=== PATIENT | male | born 1955 | race Caucasian/White ===

== ENCOUNTER 2018-09-18 17:05 | Inpatient (IN) | payer MEDICARE ==
[2018-09-18] MEDS ORDERED: NORMAL SALINE 1000 ML 1,000 ML IV ONE (17:21)
[2018-09-18 17:48] LABS: ABSOLUTE LYMPHOCYTES (AUTO) 0.8 10^3/uL (0.5-4.7); ABSOLUTE MONOCYTES (AUTO) 0.7 10^3/uL (0.1-1.4); ABSOLUTE NEUT (AUTO) 6.4 10^3/uL (1.7-8.2); BASOPHILS % (AUTO) 0.3 % (0-2); EOSINOPHILS % (AUTO) 0.1 % (0-6); HEMATOCRIT 16.7 % (37.9-51.0); LYMPHOCYTES % (AUTO) 9.7 % (13-45); MEAN CORPUSCULAR HEMOGLOBIN 23.2 pg (27.0-33.4); MEAN CORPUSCULAR HGB CONC 31.8 g/dL (32.0-36.0); MEAN CORPUSCULAR VOLUME 73 fl (80-97); MONOCYTES % (AUTO) 8.7 % (3-13); PLATELET COUNT 320 10^3/uL (150-450); RED BLOOD COUNT 2.28 10^6/uL (4.35-5.55); RED CELL DISTRIBUTION WIDTH 20.9 % (11.5-14.0); SEGMENTED NEUTROPHILS % (AUTO) 81.2 % (42-78); TOTAL CELLS COUNTED % (AUTO) 100 %; WHITE BLOOD COUNT 7.8 10^3/uL (4.0-10.5)
[2018-09-18 17:49] LABS: VENOUS BLOOD BASE EXCESS -2.4 mmol/L; VENOUS BLOOD HCO3 23.3 mmol/L (20-32); VENOUS BLOOD PCO2 45.8 mmHg (35-63); VENOUS BLOOD PH 7.33 (7.30-7.42)
[2018-09-18 17:51] LABS: HEMOGLOBIN 5.3 g/dL (13.5-17.0)
[2018-09-18] MEDS ORDERED: NORMAL SALINE 250 ML IV PRN ×2 (17:57→20:48)
[2018-09-18] MEDS ORDERED: PANTOPRAZOLE SODIUM 40 MG VIAL IV ONE (18:11)
[2018-09-18] MEDS ORDERED: PANTOPRAZOLE SODIUM 40 MG VIAL IV PRN (18:11)
[2018-09-18 18:13] LABS: ALANINE AMINOTRANSFERASE 17 U/L (21-72); ALBUMIN 2.5 g/dL (3.5-5.0); ALKALINE PHOSPHATASE 35 U/L (38-126); ANION GAP 9 (5-19); ASPARTATE AMINO TRANSFERASE 20 U/L (17-59); BILIRUBIN,DIRECT 0.1 mg/dL (0.0-0.4); BILIRUBIN,TOTAL 0.1 mg/dL (0.2-1.3); BLOOD UREA NITROGEN 35 mg/dL (7-20); CALCIUM 7.6 mg/dL (8.4-10.2); CARBON DIOXIDE 24 mmol/L (22-30); CHLORIDE 105 mmol/L (98-107); GLUCOSE 254 mg/dL (75-110); POTASSIUM 3.5 mmol/L (3.6-5.0); TOTAL PROTEIN 4.5 g/dL (6.3-8.2)
--- NOTE | 2018-09-18 18:15 | ER Document Report ---
ED General - General Stated Complaint: POSSIBLE GI BLEED Time Seen by Provider: 09/18/18 17:20 Notes: Patient is a 63-year-old male with history of peptic ulcer disease that presents to the emergency department for chief complaint of epigastric abdominal pain, weakness and fatigue and melena. Patient states that he has been having a hard time sleeping, has been taken Motrin PM, which she states is not supposed to take because he has had bleeding ulcers before, and this morning he started feeling rather weak, had a bowel movement with a large amount of black stool, which she has had in the past with his gastric ulcers. He states he feels lightheaded, did have a syncopal episode earlier in the day. At this time he feels generally weak, and has abdominal pain that he rates as a 7 out of 10 describes as a constant aching occasionally sharp sensation in his epigastric and left upper quadrant of his abdomen. He denies any chest pain, shortness of breath, difficulty breathing, fevers, chills, night sweats, dysuria or hematuria. Past Medical History: Peptic ulcer disease, hypertension, history of thyroid cancer Past Surgical History: Thyroidectomy, hernia repair Social History: Former smoker, denies alcohol or illicit drug use. Family History: Reviewed and noncontributory for presenting illness Allergies: Reviewed, see documented allergy list. REVIEW OF SYSTEMS: Other than noted above, the 12 point review of systems was reviewed with the patient and were negative, all pertinent findings are included in the HPI. PHYSICAL EXAMINATION: Vital signs reviewed, nursing noted reviewed. GENERAL: Well-appearing, well-nourished and in no acute distress. HEAD: Atraumatic, normocephalic. EYES: Eyes appear normal, extraocular movements intact, sclera anicteric, pale conjunctiva ENT: nares patent, oropharynx clear without exudates. Moist mucous membranes. NECK: Normal range of motion, supple without lymphadenopathy LUNGS: Breath sounds clear to auscultation bilaterally and equal. No wheezes rales or rhonchi. HEART: Heart rate borderline tachycardic, regular rhythm, no audible murmur ABDOMEN: Soft, epigastric and left upper quadrant tenderness to palpation, normoactive bowel sounds. No rebound, guarding, or rigidity. No masses appre ciated. EXTREMITIES: Nontender, good range of motion, no pitting or edema. NEUROLOGICAL: No focal neurological deficits. Moves all extremities spontaneously Motor and sensory grossly intact on exam. PSYCH: Normal mood, normal affect. SKIN: Warm, Dry, normal turgor, TRAVEL OUTSIDE OF THE [place] IN LAST 30 DAYS: No - Related Data Allergies/Adverse Reactions: No Known Allergies Allergy (Verified 10/26/15 19:30) Past Medical History - Social History Smoking Status: Former Smoker Family History: Reviewed & Not Pertinent Physical Exam - Vital signs Vitals: Temp Pulse Resp BP Pulse Ox 97.5 F 94 20 150/78 H 100 09/18/18 19:50 09/18/18 19:50 09/18/18 19:50 09/18/18 19:50 09/18/18 19:50 Course - Re-evaluation Re-evalutation: Patient seen and examined vital signs reviewed. Laboratory data and imaging were ordered as appropriate for the patient's presenting symptoms and complaint, with consideration of any critical or life threatening conditions that may be associated with their obtained history and exam as noted above. Patient was treated with IV fluids, IV Protonix bolus and infusion, and 2 units of packed red blood cells were ordered. Results were reviewed when available and demonstrated severe anemia of hemoglobin of 5.3, normal platelet count, INR was 1.3, his BUN was disproportionately higher than his creatinine, which is consistent with upper GI bleed, patient's had peptic ulcer disease in the past The patient was re-evaluated and was hemodynamically stable, still having some pain, he was given IV Dilaudid for his pain. Blood pressure remained stable. Evaluation was most consistent with acute GI hemorrhage, with acute blood loss anemia, I did discuss the case with Dr. You with general surgery, who is aware the patient if he needed to do an endoscopy, but at this time he is stable. Results were discussed with the patient at this point after careful consideration I feel that that patient should be admitted to the hospital. This was discussed with the patient that it is in the best interest for their care to be admitted for further evaluation and management. Patient agreed with this plan of care. A call was placed to the admitting physician, Dr. Browning who graciously accepted the patient onto their service. *Note is created using voice recognition software and may contain spelling, syntax or grammatical errors. Laboratory 09/18/18 09/18/18 09/18/18 17:20 17:21 17:25 WBC 7.8 RBC 2.28 L Hgb 5.3 L Hct 16.7 L MCV 73 L MCH 23.2 L MCHC 31.8 L RDW 20.9 H Plt Count 320 Seg Neutrophils % 81.2 H Lymphocytes % 9.7 L Monocytes % 8.7 Eosinophils % 0.1 Basophils % 0.3 Absolute Neutrophils 6.4 Absolute Lymphocytes 0.8 Absolute Monocytes 0.7 Absolute Eosinophils 0.0 Absolute Basophils 0.0 PT INR VBG pH VBG pCO2 VBG HCO3 VBG Base Excess Sodium Potassium Chloride Carbon Dioxide Anion Gap BUN Creatinine Est GFR ( Amer) Est GFR (Non-Af Amer) Glucose POC Glucose 264 H Lactic Acid 5.2 H Calcium Total Bilirubin Direct Bilirubin Neonat Total Bilirubin Neonat Direct Bilirubin Neonat Indirect Bili AST ALT Alkaline Phosphatase Troponin I Total Protein Albumin Blood Type Blood Type Confirm Antibody Screen Crossmatch 09/18/18 09/18/18 09/18/18 17:25 17:25 17:25 WBC RBC Hgb Hct MCV MCH MCHC RDW Plt Count Seg Neutrophils % Lymphocytes % Monocytes % Eosinophils % Basophils % Absolute Neutrophils Absolute Lymphocytes Absolute Monocytes Absolute Eosinophils Absolute Basophils PT 17.0 H INR 1.37 VBG pH VBG pCO2 VBG HCO3 VBG Base Excess Sodium 137.7 Potassium 3.5 L Chloride 105 Carbon Dioxide 24 Anion Gap 9 BUN 35 H Creatinine 0.82 Est GFR ( Amer) > 60 Est GFR (Non-Af Amer) > 60 Glucose 254 H POC Glucose Lactic Acid Calcium 7.6 L Total Bilirubin 0.1 L Direct Bilirubin 0.1 Neonat Total Bilirubin Not Reportable Neonat Direct Bilirubin Not Reportable Neonat Indirect Bili Not Reportable AST 20 ALT 17 L Alkaline Phosphatase 35 L Troponin I 0.061 Total Protein 4.5 L Albumin 2.5 L Blood Type Blood Type Confirm Antibody Screen Crossmatch 09/18/18 09/18/18 09/18/18 17:25 17:25 19:15 WBC RBC Hgb Hct MCV MCH MCHC RDW Plt Count Seg Neutrophils % Lymphocytes % Monocytes % Eosinophils % Basophils % Absolute Neutrophils Absolute Lymphocytes Absolute Monocytes Absolute Eosinophils Absolute Basophils PT INR VBG pH 7.33 VBG pCO2 45.8 VBG HCO3 23.3 VBG Base Excess -2.4 Sodium Potassium Chloride Carbon Dioxide Anion Gap BUN Creatinine Est GFR ( Amer) Est GFR (Non-Af Amer) Glucose POC Glucose Lactic Acid Calcium Total Bilirubin Direct Bilirubin Neonat Total Bilirubin Neonat Direct Bilirubin Neonat Indirect Bili AST ALT Alkaline Phosphatase Troponin I Total Protein Albumin Blood Type A POSITIVE Blood Type Confirm A POSITIVE Antibody Screen NEGATIVE Crossmatch See Detail Chest X-Ray 09/18/18 18:12 IMPRESSION: NO ACUTE RADIOGRAPHIC FINDING IN THE CHEST. - Vital Signs Vital signs: Temp Pulse Resp BP Pulse Ox 98.0 F 95 20 121/64 100 09/18/18 20:29 09/18/18 20:29 09/18/18 20:29 09/18/18 20:29 09/18/18 20:29 - Laboratory Result Diagrams: 09/18/18 17:25 09/18/18 17:25 Laboratory results interpreted by me: 09/18/18 09/18/18 09/18/18 17:20 17:21 17:25 RBC 2.28 L Hgb 5.3 L Hct 16.7 L MCV 73 L MCH 23.2 L MCHC 31.8 L RDW 20.9 H Seg Neutrophils % 81.2 H Lymphocytes % 9.7 L PT Potassium BUN Glucose POC Glucose 264 H Lactic Acid 5.2 H Calcium Total Bilirubin ALT Alkaline Phosphatase Total Protein Albumin Crossmatch 09/18/18 09/18/18 09/18/18 17:25 17:25 17:25 RBC Hgb Hct MCV MCH MCHC RDW Seg Neutrophils % Lymphocytes % PT 17.0 H Potassium 3.5 L BUN 35 H Glucose 254 H POC Glucose Lactic Acid Calcium 7.6 L Total Bilirubin 0.1 L ALT 17 L Alkaline Phosphatase 35 L Total Protein 4.5 L Albumin 2.5 L Crossmatch See Detail - EKG Interpretation by Me Additional EKG results interpreted by me: EKG demonstrates sinus rhythm with a ventricular rate of 88 bpm, normal axis, QTC 475 ms, there is ST depression noted in nearly all leads. No prior for comparison at this time. Critical Care Note - Critical Care Note Total time excluding time spent on procedures (mins): 36 Comments: Critical care time 36 minutes exclusive from separate billable procedures for a patient requiring complex medical decision making, and high potential for clinical deterioration. In a patient with acute blood loss anemia and acute GI hemorrhage, requiring blood transfusion and admission to the hospital. Time spent obtaining history from patient or surrogate, discussions with consultants, development of treatment plan with patient or surrogate, evaluation of patient's response to treatment, examination of patient, ordering and performing treatments and interventions, ordering and review of laboratory studies, re- evaluation of patient's condition, ordering and review of radiographic studies and review of old charts Discharge - Discharge Clinical Impression: Acute GI hemorrhage, Acute blood loss anemia Condition: Stable Disposition: ADMITTED INPATIENT Admitting Provider: Nallely (Hospitalist) Unit Admitted: [facility]
[2018-09-18] MEDS ORDERED: FENTANYL CITRATE INJ/PF 100 MCG/2 ML AMPUL IV ONE (18:20)
[2018-09-18] MEDS ORDERED: ONDANSETRON HCL INJ/PF 4 MG/2 ML SDV IV ONE (18:20)
[2018-09-18 18:21] LABS: INTERNATIONAL RATION (INR) 1.37
--- NOTE | 2018-09-18 19:02 | RADIOLOGY REPORT (SQ) ---
EXAM DESCRIPTION: CHEST SINGLE VIEW COMPLETED DATE/TIME: 09/18/2018 6:50 pm REASON FOR STUDY: epigastric pain COMPARISON: None. EXAM PARAMETERS: NUMBER OF VIEWS: One view. TECHNIQUE: Single frontal radiographic view of the chest acquired. RADIATION DOSE: NA LIMITATIONS: None. FINDINGS: LUNGS AND PLEURA: No opacities, masses or pneumothorax. No pleural effusion. MEDIASTINUM AND HILAR STRUCTURES: No masses. Contour normal. HEART AND VASCULAR STRUCTURES: Heart normal in size. Normal vasculature. BONES: No acute findings. HARDWARE: None in the chest. OTHER: No other significant finding. IMPRESSION: NO ACUTE RADIOGRAPHIC FINDING IN THE CHEST. TECHNICAL DOCUMENTATION: JOB ID: [id number] [employer]- All Rights Reserved Reading location - IP/workstation name: [email or web address]
[2018-09-18] MEDS ORDERED: HYDROMORPHONE HCL INJ/PF 2 MG/ML AMPULE IV ONE (20:39)
[2018-09-18] MEDS ORDERED: HYDRALAZINE HCL INJ/PF 20 MG/1 ML SDV IV PRN (20:46)
[2018-09-18] MEDS ORDERED: MORPHINE SULFATE 10 MG/ML INJ IV PRN ×3 (20:46→21:42)
[2018-09-18] MEDS ORDERED: ACETAMINOPHEN 650 MG SUPP.RECT PR PRN (20:46)
[2018-09-18] MEDS ORDERED: METOPROLOL TARTRATE PF/INJ 5 MG/5 ML SDV IV PRN (20:46)
[2018-09-18] MEDS ORDERED: ONDANSETRON HCL INJ/PF 4 MG/2 ML SDV ONE (20:47)
[2018-09-18] MEDS ORDERED: FUROSEMIDE INJ/PF 20 MG/2 ML SDV IV PRN (20:48)
[2018-09-18] MEDS ORDERED: DIPHENHYDRAMINE HCL 50 MG/ML VIAL IV PRN (20:48)
--- NOTE | 2018-09-18 21:14 | PDOC CONSULTATION ---
Consultation Consult Date: 09/18/18 Provider Consulted: BAUDILIO CONTRERAS Consult reason:: UGI bleed History of Present Illness Admission Date/PCP: 09/18/18 21:00 BASSEM MORALES MD History of Present Illness: RADHIKA DUMONT is a 63 year old male with known duodenal ulcer has been taking Motrin based sleeping pill every night for the past 30 days. This morning c/o epigastric pains,weakness near sybcopal episode, nausea and a large melanotic stools. Went to ED and noted HB of 5.3 and melanotic stool. Past Medical History Cardiac Medical History: Reports: Hypertension Denies: Atrial Fibrillation, Coronary Artery Disease, Myocardial Infarction Pulmonary Medical History: Denies: Asthma, Chronic Obstructive Pulmonary Disease (COPD) EENT Medical History: Denies: Cataracts, Ears - Hearing aids Neurological Medical History: Denies: Hemorrhagic CVA, Ischemic CVA, Multiple Sclerosis, Seizures Endocrine Medical History: Reports: Hypothyroidism, Other - Thyroid cancer Denies: Diabetes Mellitus Type 1, Diabetes Mellitus Type 2 Renal/ Medical History: Denies: Chronic Kidney Disease, Nephrolithiasis Malignancy Medical History: Reports: Other - Thyroid cancer GI Medical History: Reports: Peptic Ulcer Disease Denies: Cirrhosis, Hepatitis Musculoskeltal Medical History: Denies: Arthritis, Gout Skin Medical History: Denies: Eczema, Psoriasis Psychiatric Medical History: Reports: Tobacco Dependency Denies: Alcohol Dependency, Substance Abuse Traumatic Medical History: Reports: None Hematology: Denies: Anemia, Bleeding Tendencies Infectious Medical History: Reports: None Past Surgical History Past Surgical History: Reports: Herniorrhaphy, Thyroidectomy Social History Smoking Status: Former Smoker Frequency of Alcohol Use: None Hx Recreational Drug Use: No Drugs: None Hx Prescription Drug Abuse: No - Advance Directive Resuscitation Status: Full Code Family History Family History: Hypertension, Malignancy. denies: CAD, DM Parental Family History Reviewed: Yes Children Family History Reviewed: No Sibling(s) Family History Reviewed.: No Medication/Allergy Allergies/Adverse Reactions: No Known Allergies Allergy (Verified 10/26/15 19:30) Review of Systems Constitutional: PRESENT: as per HPI Physical Exam Vital Signs: Temp Pulse Resp BP Pulse Ox 98.0 F 95 20 121/64 100 09/18/18 20:29 09/18/18 20:29 09/18/18 20:29 09/18/18 20:29 09/18/18 20:29 Intake & Output 09/17/18 09/18/18 09/19/18 06:59 06:59 06:59 Intake Total 1000 Balance 1000 Weight 80.2 kg General appearance: PRESENT: severe distress Head exam: PRESENT: atraumatic Eye exam: PRESENT: conjunctiva pale Mouth exam: PRESENT: dry mucosa Neck exam: PRESENT: full ROM Respiratory exam: PRESENT: clear to auscultation fito Cardiovascular exam: PRESENT: tachycardia Pulses: PRESENT: normal radial pulses Vascular exam: PRESENT: pallor GI/Abdominal exam: PRESENT: soft, tenderness - epigastic Rectal exam: PRESENT: black stool Extremities exam: PRESENT: full ROM Musculoskeletal exam: PRESENT: ambulatory Neurological exam: PRESENT: alert, oriented to person, oriented to place, oriented to time, oriented to situation Psychiatric exam: PRESENT: anxious Skin exam: PRESENT: pallor, warm Results Laboratory Results: 09/18/18 17:25 09/18/18 17:25 09/18/18 09/18/18 09/18/18 17:21 17:25 17:25 WBC 7.8 RBC 2.28 L Hgb 5.3 L Hct 16.7 L MCV 73 L MCH 23.2 L MCHC 31.8 L RDW 20.9 H Plt Count 320 Seg Neutrophils % 81.2 H Lymphocytes % 9.7 L Monocytes % 8.7 Eosinophils % 0.1 Basophils % 0.3 Absolute Neutrophils 6.4 Absolute Lymphocytes 0.8 Absolute Monocytes 0.7 Absolute Eosinophils 0.0 Absolute Basophils 0.0 VBG pH VBG pCO2 VBG HCO3 VBG Base Excess Sodium 137.7 Potassium 3.5 L Chloride 105 Carbon Dioxide 24 Anion Gap 9 BUN 35 H Creatinine 0.82 Est GFR ( Amer) > 60 Est GFR (Non-Af Amer) > 60 Glucose 254 H Lactic Acid 5.2 H Calcium 7.6 L Total Bilirubin 0.1 L AST 20 ALT 17 L Alkaline Phosphatase 35 L Total Protein 4.5 L Albumin 2.5 L Blood Type Antibody Screen 09/18/18 09/18/18 17:25 17:25 WBC RBC Hgb Hct MCV MCH MCHC RDW Plt Count Seg Neutrophils % Lymphocytes % Monocytes % Eosinophils % Basophils % Absolute Neutrophils Absolute Lymphocytes Absolute Monocytes Absolute Eosinophils Absolute Basophils VBG pH 7.33 VBG pCO2 45.8 VBG HCO3 23.3 VBG Base Excess -2.4 Sodium Potassium Chloride Carbon Dioxide Anion Gap BUN Creatinine Est GFR ( Amer) Est GFR (Non-Af Amer) Glucose Lactic Acid Calcium Total Bilirubin AST ALT Alkaline Phosphatase Total Protein Albumin Blood Type A POSITIVE Antibody Screen NEGATIVE 09/18/18 17:25 Troponin I 0.061 Impressions: Chest X-Ray 09/18/18 18:12 IMPRESSION: NO ACUTE RADIOGRAPHIC FINDING IN THE CHEST. Assessment & Plan - Diagnosis (1) Acute epigastric pain Is this a current diagnosis for this admission?: Yes (2) Acute upper gastrointestinal hemorrhage Is this a current diagnosis for this admission?: Yes (3) Anemia due to acute blood loss Is this a current diagnosis for this admission?: Yes (4) Essential hypertension Is this a current diagnosis for this admission?: Yes - Time Time Spent: 30 to 50 Minutes - Inpatient Certification Medical Necessity: Need Close Monitoring Due to Risk of Patient Decompensation, Need For IV Fluids, Need for Pain Control, Risk of Complication if Not Cared For in Hospital - Plan Summary Plan Summary: Transfuse Give 2 Units FFP after transfusing 2-3 PRBCs Continue Protonix drip Possible EGD
[2018-09-18 21:40] LABS: FREE T3 3.2 pg/mL (2.77-5.27); FREE T4 (FREE THYROXINE) 0.74 ng/dL (0.78-2.19)
[2018-09-18 21:53] LABS: THYROID STIMULATING HORMONE 1.23 uIU/mL (0.47-4.68)
--- NOTE | 2018-09-18 23:12 | EKG REPORT ---
SEVERITY:- ABNORMAL ECG - SINUS RHYTHM CONSIDER POSTERIOR INFARCT ST-T WAVE CHANGES ALSO CONSISTENT WITH ISCHEMIA : Confirmed by: Melisa Proctor 18-Sep-2018 23:11:52
[2018-09-19] MEDS: MORPHINE SULFATE 10 MG/ML INJ IV PRN ×6 (00:11→23:58)
[2018-09-19] MEDS ORDERED: CHLORPROMAZINE HCL INJ 25 MG/1 ML AMPULE IV PRN (01:47)
[2018-09-19] MEDS ORDERED: CHLORPROMAZINE HCL INJ 25 MG/1 ML AMPULE ONE (01:50)
--- NOTE | 2018-09-19 01:54 | PDOC H&P ---
History of Present Illness Admission Date/PCP: 09/18/2018 19:39 BASSME MORALES MD Patient complains of: Abdominal pain History of Present Illness: RADHIKA DUMONT is a 63 year old male who presented to the emergency room with acute abdominal pain. He admits waking this morning with the acute onset of severe, constant, achy (with intermittent sharp pains) epigastric pain without radiation. Patient's abdominal pain was accompanied by a feeling of generalized fatigue and weakness and was associated with passing a large dark black tarry stool and a syncopal episode. He denies other associated or accompanying signs and symptoms. He admits recent problems with insomnia for which she has been taking Motrin PM. He further admits a history of peptic ulcer disease with hemorrhage and relates that his current episode is very similar to his previous episode. He has not identified any other aggravating or ameliorating factors for his abdominal pain. In the emergency room he was found to be hemodynamically stable but had a hemoglobin of 5.3 and a BUN of 35. Patient was subsequently admitted to the hospital for further evaluation and treatment. Past Medical History Cardiac Medical History: Reports: Hypertension Denies: Atrial Fibrillation, Coronary Artery Disease, Myocardial Infarction Pulmonary Medical History: Denies: Asthma, Chronic Obstructive Pulmonary Disease (COPD) EENT Medical History: Denies: Cataracts, Ears - Hearing aids Neurological Medical History: Denies: Hemorrhagic CVA, Ischemic CVA, Multiple Sclerosis, Seizures Endocrine Medical History: Reports: Hypothyroidism, Other - Thyroid cancer Denies: Diabetes Mellitus Type 1, Diabetes Mellitus Type 2 Renal/ Medical History: Denies: Chronic Kidney Disease, Nephrolithiasis Malignancy Medical History: Reports: Other - Thyroid cancer GI Medical History: Reports: Peptic Ulcer Disease Denies: Cirrhosis, Hepatitis Musculoskeltal Medical History: Denies: Arthritis, Gout Skin Medical History: Denies: Eczema, Psoriasis Psychiatric Medical History: Reports: Tobacco Dependency Denies: Alcohol Dependency, Substance Abuse Traumatic Medical History: Reports: None Hematology: Denies: Anemia, Bleeding Tendencies Infectious Medical History: Reports: None Past Surgical History Past Surgical History: Reports: Herniorrhaphy, Hip Replacement, Knee Replacement, Thyroidectomy Social History Information Source: Patient Smoking Status: Former Smoker Frequency of Alcohol Use: None Hx Recreational Drug Use: No Drugs: None Hx Prescription Drug Abuse: No - Advance Directive Resuscitation Status: Full Code Surrogate healthcare decision maker:: Isi [place] Family History Family History: Hypertension, Malignancy. denies: CAD, DM Parental Family History Reviewed: Yes Children Family History Reviewed: No Sibling(s) Family History Reviewed.: Yes Medication/Allergy Home Medications: Buspirone HCl [Buspar 10 mg Tablet] 10 mg PO Q8 09/18/18 Clonidine HCl [Catapres 0.1 mg Tablet] 0.1 mg PO Q12 09/18/18 Doxepin HCl [Sinequan 10 mg Capsule] 10 mg PO QHS 09/18/18 Gabapentin [Neurontin] 600 mg PO Q8 09/18/18 Hydroxyzine Pamoate [Vistaril 25 mg Capsule] 25 mg PO Q8HP PRN 09/18/18 Levothyroxine Sodium [Levo-T] 150 mcg PO Q2D 09/18/18 Levothyroxine Sodium [Synthroid] 137 mcg PO Q2D 09/18/18 Losartan/Hydrochlorothiazide [Hyzaar 50-12.5 Tablet] 1 tab PO Q12 09/18/18 Magnesium Oxide [Mag-Ox 400 mg Tablet] 400 mg PO QHS 09/18/18 Oxycodone HCl 15 mg PO Q6HP PRN 09/18/18 Sucralfate [Carafate 1 gm Tablet] 1 gm PO MEALSHS 09/18/18 Venlafaxine HCl [Venlafaxine HCl ER] 150 mg PO Q12 09/18/18 Allergies/Adverse Reactions: No Known Allergies Allergy (Verified 10/26/15 19:30) Review of Systems Constitutional: PRESENT: as per HPI, fatigue, weakness. ABSENT: chills, fever(s) Eyes: ABSENT: visual disturbances, other - Eye pain Ears: ABSENT: hearing changes, other - Ear pain Nose, Mouth, and Throat: ABSENT: mouth pain, sore throat Cardiovascular: ABSENT: chest pain, dyspnea on exertion, edema, orthropnea, palpitations Respiratory: ABSENT: cough, dyspnea Gastrointestinal: PRESENT: as per HPI, abdominal pain, melena. ABSENT: constipation, diarrhea, nausea, vomiting Genitourinary: ABSENT: dysuria, hematuria Musculoskeletal: ABSENT: back pain, joint swelling, muscle weakness Integumentary: ABSENT: pruritus, rash Neurological: PRESENT: as per HPI, syncope, other - Insomnia. ABSENT: confusion, convulsions, focal weakness, memory loss Psychiatric: ABSENT: anxiety, depression Endocrine: ABSENT: cold intolerance, heat intolerance Hematologic/Lymphatic: ABSENT: easy bleeding, easy bruising Physical Exam General appearance: PRESENT: no acute distress, cooperative Head exam: PRESENT: atraumatic, normocephalic Eye exam: PRESENT: conjunctiva pale. ABSENT: conjunctival injection, scleral icterus Ear exam: PRESENT: normal external ear exam. ABSENT: bleeding, drainage Mouth exam: PRESENT: dry mucosa, neck supple Neck exam: PRESENT: other - Thyroid is surgically absent. ABSENT: JVD, tracheal deviation Respiratory exam: PRESENT: clear to auscultation fito, symmetrical, unlabored Cardiovascular exam: PRESENT: RRR. ABSENT: clicks, gallop, rubs Pulses: PRESENT: normal radial pulses, normal dorsalis pedis pul Vascular exam: PRESENT: normal capillary refill, pallor - Moderate pallor noted GI/Abdominal exam: PRESENT: normal bowel sounds, soft, tenderness - Mild epigastric tenderness on palpation, moderate to moderately severe tenderness to palpation in the periumbilical and suprapubic regions.. ABSENT: guarding, rebound Rectal exam: PRESENT: deferred Extremities exam: ABSENT: joint swelling, pedal edema Musculoskeletal exam: PRESENT: full ROM, normal inspection. ABSENT: tenderness Neurological exam: PRESENT: alert, oriented to person, oriented to place, oriented to time, oriented to situation, CN II-XII grossly intact. ABSENT: motor sensory deficit Psychiatric exam: PRESENT: appropriate affect, normal mood Skin exam: PRESENT: dry, intact, pallor - Moderate pallor, warm. ABSENT: jaundice, rash, urticaria Results Laboratory Results: 09/18/18 17:25 09/18/18 17:25 09/18/18 09/18/18 09/18/18 17:21 17:25 17:25 WBC 7.8 RBC 2.28 L Hgb 5.3 L Hct 16.7 L MCV 73 L MCH 23.2 L MCHC 31.8 L RDW 20.9 H Plt Count 320 Seg Neutrophils % 81.2 H Lymphocytes % 9.7 L Monocytes % 8.7 Eosinophils % 0.1 Basophils % 0.3 Absolute Neutrophils 6.4 Absolute Lymphocytes 0.8 Absolute Monocytes 0.7 Absolute Eosinophils 0.0 Absolute Basophils 0.0 VBG pH VBG pCO2 VBG HCO3 VBG Base Excess Sodium 137.7 Potassium 3.5 L Chloride 105 Carbon Dioxide 24 Anion Gap 9 BUN 35 H Creatinine 0.82 Est GFR ( Amer) > 60 Est GFR (Non-Af Amer) > 60 Glucose 254 H Lactic Acid 5.2 H Calcium 7.6 L Total Bilirubin 0.1 L AST 20 ALT 17 L Alkaline Phosphatase 35 L Total Protein 4.5 L Albumin 2.5 L Blood Type Antibody Screen 09/18/18 09/18/18 17:25 17:25 WBC RBC Hgb Hct MCV MCH MCHC RDW Plt Count Seg Neutrophils % Lymphocytes % Monocytes % Eosinophils % Basophils % Absolute Neutrophils Absolute Lymphocytes Absolute Monocytes Absolute Eosinophils Absolute Basophils VBG pH 7.33 VBG pCO2 45.8 VBG HCO3 23.3 VBG Base Excess -2.4 Sodium Potassium Chloride Carbon Dioxide Anion Gap BUN Creatinine Est GFR ( Amer) Est GFR (Non-Af Amer) Glucose Lactic Acid Calcium Total Bilirubin AST ALT Alkaline Phosphatase Total Protein Albumin Blood Type A POSITIVE Antibody Screen NEGATIVE 09/18/18 17:25 Troponin I 0.061 Impressions: Chest X-Ray 09/18/18 18:12 IMPRESSION: NO ACUTE RADIOGRAPHIC FINDING IN THE CHEST. Assessment and Plan - Diagnosis (1) Acute upper gastrointestinal hemorrhage Is this a current diagnosis for this admission?: Yes Plan: Patient will be treated with supportive and symptomatic cares. A surgical consultation will be obtained for evaluation and/or treatment of the acute upper GI hemorrhage. Every 6 hours hemoglobins and daily metabolic profiles with magnesium levels will be obtained. Anemia will be corrected with acute transfusion, initially 2 units of packed red blood cells with further replacement as required. Patient will receive IV Protonix as part of his management. Patient's epigastric pain will be treated with morphine sulfate 2 to 4 mg IV every 2 hours on a as needed basis per sliding scale. (2) Acute epigastric pain Is this a current diagnosis for this admission?: Yes Plan: Patient will receive IV Protonix as part of his management. Patient's epigastric pain will be treated with morphine sulfate 2 to 4 mg IV every 2 hours on a as needed basis per sliding scale. (3) Anemia due to acute blood loss Is this a current diagnosis for this admission?: Yes Plan: A surgical consultation will be obtained for evaluation and/or treatment of the acute upper GI hemorrhage. Every 6 hours hemoglobins and daily metabolic profiles with magnesium levels will be obtained. Anemia will be corrected with acute transfusion, initially 2 units of packed red blood cells with further replacement as required. (4) Acquired hypothyroidism Is this a current diagnosis for this admission?: Yes Plan: Thyroid profile will be obtained to evaluate the efficacy of the patient's current therapy. The patient will be continued on his current thyroid replacement hormone administered intravenously until he is able to take p.o. meds. (5) Essential hypertension Is this a current diagnosis for this admission?: Yes Plan: Patient will be continued on his current antihypertensive therapy when he is able to take oral medications again. In the interim he will be controlled with intravenous hydralazine 20 mg IV every 4 hours and or intravenous metoprolol 5 mg IV every 4 hours. - Time Time Spent with patient: 25-34 minutes Medications reviewed and adjusted accordingly: Yes Anticipated discharge: Home - Inpatient Certification Based on my medical assessment, after consideration of the patient's comorbidities, presenting symptoms, or acuity I expect that the services needed warrant INPATIENT care.: Yes I certify that my determination is in accordance with my understanding of Medicare's requirements for reasonable and necessary INPATIENT services [42 CFR 412.3e].: Yes Medical Necessity: Need Close Monitoring Due to Risk of Patient Decompensation, Need For Continuous Telemetry Monitoring, Need for Pain Control, Need for Surgery, Risk of Complication if Not Cared For in Hospital
--- NOTE | 2018-09-19 01:56 | ADVANCED CARE ---
- Diagnosis (1) Acute upper gastrointestinal hemorrhage Diagnosis Current: Yes (2) Acute epigastric pain Diagnosis Current: Yes (3) Anemia due to acute blood loss Diagnosis Current: Yes (4) Acquired hypothyroidism Diagnosis Current: Yes (5) Essential hypertension Diagnosis Current: Yes Attendance: The patient and myself. Resuscitation Status: Full Code Discussion: After brief discussion the patient is determined that he wishes to remain full code for resuscitation status throughout this hospital course. Additionally he has named Isi Gonzalez as his designated surrogate medical decision-maker. Care Planning Goals: 1. Patient will be full CODE STATUS throughout his hospital course. 2. Isi Summers is his designated surrogate medical decision maker. Document(s) Completed: The following will be entered into the patient's permanent medical record, current medical record and current orders via EMR entry: 1. Patient will be full CODE STATUS throughout his hospital course. 2. Isi Summers is his designated surrogate medical decision maker. Time Spent: 16 minutes
[2018-09-19] MEDS: ONDANSETRON HCL INJ/PF 4 MG/2 ML SDV IV PRN (01:58)
[2018-09-19] MEDS: NORMAL SALINE 1000 ML 1,000 ML IV PRN ×2 (03:10→13:00)
--- NOTE | 2018-09-19 04:29 | Progress Note ---
Provider Note Provider Note: Critical Care: Start: 01:28 09/19/2018 Care issues near syncope, tachycardia and diaphoresis. Patient was up to the bathroom and developed sudden lightheadedness with near syncope, profuse diaphoresis and tachycardia. He was helped back to the bed and felt better, but remained diaphoretic and tachycardic. Patient was evaluated and was found to have a blood pressure of 139/84. His chest was clear and his abdomen showed decreased bowel sounds with mild tenderness throughout the epigastrium and moderate to moderately severe tenderness in the periumbilical and suprapubic regions. He showed diaphoresis and pallor on visual inspection. Patient was due to receive additional blood therefore the transfusions were continued and the choice to continue to observe him on the IMCU was made. Patient was subsequently given additional IV fluids and his second unit of blood. By the time his second unit of blood had been administered he was found to be markedly hypotensive with a systolic blood pressure of 48 persistent tachycardia in the 110's. At the time of my second evaluation the patient was found to be awake alert and asking for something for pain though his monitor showed a systolic blood pressure of 48 and a heart rate of 118. Certainly there is a technical/mechanical problem with the measurement of the blood pressure I am having the patient transferred to the ICU for further evaluation and treatment in the anticipation that he may need a central line placement and may require high-volume IV fluids and/or massive blood transfusion and/or immediate surgery. Orders were placed and the patient has been moved to the ICU. On reevaluation the ICU the patient is found to have a blood pressure 123/80, heart rate remains 113. Be given more fluids and consideration for central line should be given when the patient is seen by the surgicalist again later today. End: 04:27 09/19/2018 Total face time critical care: 29 minutes
[2018-09-19] MEDS ORDERED: RINGERS SOLUTION,LACTATED 1,000 ML IV PRN (04:37)
[2018-09-19] MEDS: METOCLOPRAMIDE HCL INJ/PF 10 MG/2 ML SDV IV SCH ×4 (05:02→23:13)
[2018-09-19 05:36] LABS: HEMATOCRIT 17.1 % (37.9-51.0); MEAN CORPUSCULAR HEMOGLOBIN 26.2 pg (27.0-33.4); MEAN CORPUSCULAR HGB CONC 32.3 g/dL (32.0-36.0); PLATELET COUNT 188 10^3/uL (150-450); RED BLOOD COUNT 2.11 10^6/uL (4.35-5.55); RED CELL DISTRIBUTION WIDTH 20.4 % (11.5-14.0); WHITE BLOOD COUNT 7.3 10^3/uL (4.0-10.5)
[2018-09-19 05:37] LABS: MEAN CORPUSCULAR VOLUME 81 fl (80-97)
[2018-09-19 05:39] LABS: HEMOGLOBIN 5.5 g/dL (13.5-17.0)
[2018-09-19] MEDS ORDERED: DEXTROSE 40% GEL 15 GM TUBE PO PRN ×2 (06:06)
[2018-09-19] MEDS ORDERED: DEXTROSE 50%-WATER 25 GM/50 ML DISP.SYRIN IV PRN ×2 (06:06)
[2018-09-19] MEDS ORDERED: GLUCAGON,HUMAN RECOMB 1 MG INJ SUBCUT PRN (06:06)
[2018-09-19 06:35] LABS: INTERNATIONAL RATION (INR) 1.48
[2018-09-19 06:47] LABS: ANION GAP 10 (5-19); BLOOD UREA NITROGEN 41 mg/dL (7-20); CARBON DIOXIDE 19 mmol/L (22-30); CHLORIDE 109 mmol/L (98-107); GLUCOSE 140 mg/dL (75-110); POTASSIUM 3.9 mmol/L (3.6-5.0)
[2018-09-19 06:50] LABS: APPEARANCE,URINE CLEAR; BILIRUBIN,URINE NEGATIVE (NEGATIVE); COLOR,URINE YELLOW; GLUCOSE, URINE 50 mg/dL (NEGATIVE); KETONES,URINE NEGATIVE (NEGATIVE); LEUKOCYTE ESTERASE,URINE NEGATIVE (NEGATIVE); NITRITE,URINE NEGATIVE (NEGATIVE); PROTEIN,URINE NEGATIVE (NEGATIVE); URINE SPECIFIC GRAVITY 1.016; UROBILINOGEN,URINE NEGATIVE mg/dL (<2.0)
[2018-09-19 06:53] LABS: CALCIUM 6.8 mg/dL (8.4-10.2)
[2018-09-19] MEDS: NORMAL SALINE 100 ML with PANTOPRAZOLE SODIUM 80 MG IV PRN ×4 (09:00→20:30)
--- NOTE | 2018-09-19 09:06 | PDOC PROGRESS REPORT ---
Subjective Progress Note for:: 09/19/18 Subjective:: 63 y/o M with a h/o NSAID overuse. He was found to have a hemoglobin of 5. He was given 2 units, and his hemoglobin remains at 5. The patient reports melanotic stool. He denies nausea, vomiting, hematemesis. He reports epigastric abdominal pain. He reports a history of peptic ulcer disease in the past. He feels weak, tired, and orthostatic. Reason For Visit: UPPDER GI BLEED Physical Exam Vital Signs: Temp Pulse Resp BP Pulse Ox 99.1 F 104 H 18 111/67 100 09/19/18 08:00 09/19/18 08:00 09/19/18 08:00 09/19/18 08:00 09/19/18 08:00 Intake & Output 09/18/18 09/19/18 09/20/18 06:59 06:59 06:59 Intake Total 1548 Output Total 0 1000 Balance 1548 -1000 Weight 78.3 kg General appearance: PRESENT: cooperative Head exam: PRESENT: atraumatic, normocephalic Eye exam: PRESENT: EOMI, PERRLA. ABSENT: scleral icterus Mouth exam: PRESENT: moist, neck supple Neck exam: ABSENT: meningismus, tenderness, thyromegaly, tracheal deviation Cardiovascular exam: PRESENT: tachycardia Pulses: PRESENT: normal radial pulses Vascular exam: PRESENT: pallor. ABSENT: normal capillary refill GI/Abdominal exam: PRESENT: soft. ABSENT: distended, firm, tenderness Rectal exam: PRESENT: deferred Extremities exam: ABSENT: clubbing Musculoskeletal exam: ABSENT: deformity Neurological exam: PRESENT: awake - Awakens to voice., oriented to person, oriented to place, oriented to time, oriented to situation Psychiatric exam: ABSENT: agitated, anxious, depressed Focused psych exam: ABSENT: delusional Skin exam: ABSENT: erythema, jaundice Results Laboratory Results: 09/19/18 05:27 09/19/18 06:20 09/18/18 09/18/18 09/18/18 17:21 17:25 17:25 WBC 7.8 RBC 2.28 L Hgb 5.3 L Hct 16.7 L MCV 73 L MCH 23.2 L MCHC 31.8 L RDW 20.9 H Plt Count 320 Seg Neutrophils % 81.2 H Lymphocytes % 9.7 L Monocytes % 8.7 Eosinophils % 0.1 Basophils % 0.3 Absolute Neutrophils 6.4 Absolute Lymphocytes 0.8 Absolute Monocytes 0.7 Absolute Eosinophils 0.0 Absolute Basophils 0.0 VBG pH VBG pCO2 VBG HCO3 VBG Base Excess Sodium 137.7 Potassium 3.5 L Chloride 105 Carbon Dioxide 24 Anion Gap 9 BUN 35 H Creatinine 0.82 Est GFR ( Amer) > 60 Est GFR (Non-Af Amer) > 60 Glucose 254 H Lactic Acid 5.2 H Calcium 7.6 L Magnesium Total Bilirubin 0.1 L AST 20 ALT 17 L Alkaline Phosphatase 35 L Total Protein 4.5 L Albumin 2.5 L TSH Free T4 Free T3 pg/mL Urine Color Urine Appearance Urine pH Ur Specific [place] Urine Protein Urine Glucose (UA) Urine Ketones Urine Blood Urine Nitrite Ur Leukocyte Esterase Urine WBC (Auto) Urine RBC (Auto) Blood Type Antibody Screen 09/18/18 09/18/18 09/18/18 17:25 17:25 17:25 WBC RBC Hgb Hct MCV MCH MCHC RDW Plt Count Seg Neutrophils % Lymphocytes % Monocytes % Eosinophils % Basophils % Absolute Neutrophils Absolute Lymphocytes Absolute Monocytes Absolute Eosinophils Absolute Basophils VBG pH 7.33 VBG pCO2 45.8 VBG HCO3 23.3 VBG Base Excess -2.4 Sodium Potassium Chloride Carbon Dioxide Anion Gap BUN Creatinine Est GFR ( Amer) Est GFR (Non-Af Amer) Glucose Lactic Acid Calcium Magnesium Total Bilirubin AST ALT Alkaline Phosphatase Total Protein Albumin TSH 1.23 Free T4 0.74 L Free T3 pg/mL 3.20 Urine Color Urine Appearance Urine pH Ur Specific [place] Urine Protein Urine Glucose (UA) Urine Ketones Urine Blood Urine Nitrite Ur Leukocyte Esterase Urine WBC (Auto) Urine RBC (Auto) Blood Type A POSITIVE Antibody Screen NEGATIVE 09/19/18 09/19/18 09/19/18 00:31 05:27 06:20 WBC 7.3 RBC 2.11 L Hgb 5.5 L Hct 17.1 L MCV 81 D MCH 26.2 L MCHC 32.3 RDW 20.4 H Plt Count 188 Seg Neutrophils % Lymphocytes % Monocytes % Eosinophils % Basophils % Absolute Neutrophils Absolute Lymphocytes Absolute Monocytes Absolute Eosinophils Absolute Basophils VBG pH VBG pCO2 VBG HCO3 VBG Base Excess Sodium 137.8 Potassium 3.9 Chloride 109 H Carbon Dioxide 19 L Anion Gap 10 BUN 41 H Creatinine 1.12 Est GFR ( Amer) > 60 Est GFR (Non-Af Amer) > 60 Glucose 140 H Lactic Acid 3.0 H Calcium 6.8 L* Magnesium 1.8 Total Bilirubin AST ALT Alkaline Phosphatase Total Protein Albumin TSH Free T4 Free T3 pg/mL Urine Color Urine Appearance Urine pH Ur Specific [place] Urine Protein Urine Glucose (UA) Urine Ketones Urine Blood Urine Nitrite Ur Leukocyte Esterase Urine WBC (Auto) Urine RBC (Auto) Blood Type Antibody Screen 09/19/18 09/19/18 06:20 06:36 WBC RBC Hgb Hct MCV MCH MCHC RDW Plt Count Seg Neutrophils % Lymphocytes % Monocytes % Eosinophils % Basophils % Absolute Neutrophils Absolute Lymphocytes Absolute Monocytes Absolute Eosinophils Absolute Basophils VBG pH VBG pCO2 VBG HCO3 VBG Base Excess Sodium Potassium Chloride Carbon Dioxide Anion Gap BUN Creatinine Est GFR ( Amer) Est GFR (Non-Af Amer) Glucose Lactic Acid 6.8 H Calcium Magnesium Total Bilirubin AST ALT Alkaline Phosphatase Total Protein Albumin TSH Free T4 Free T3 pg/mL Urine Color YELLOW Urine Appearance CLEAR Urine pH 6.0 Ur Specific [place] 1.016 Urine Protein NEGATIVE Urine Glucose (UA) 50 H Urine Ketones NEGATIVE Urine Blood NEGATIVE Urine Nitrite NEGATIVE Ur Leukocyte Esterase NEGATIVE Urine WBC (Auto) 1 Urine RBC (Auto) 0 Blood Type Antibody Screen 09/18/18 17:25 Troponin I 0.061 Impressions: Chest X-Ray 09/18/18 18:12 IMPRESSION: NO ACUTE RADIOGRAPHIC FINDING IN THE CHEST. Assessment & Plan - Diagnosis (1) GI bleeding Is this a current diagnosis for this admission?: Yes (2) Anemia due to acute blood loss Is this a current diagnosis for this admission?: Yes - Plan Summary Plan Summary: This is a 63-year-old male with GI bleeding and severe anemia. The patient is due to receive 4 units of packed red blood cells and 2 units of FFP. Plan for EGD today to evaluate gastric and duodenal mucosa. Intervention will be performed, if indicated. I discussed this with the patient. He is in agreement with treatment plan. Risks/benefits discussed, informed consent obtained, and all questions answered.
[2018-09-19] MEDS ORDERED: PANTOPRAZOLE SODIUM 40 MG VIAL IV SCH (10:00)
[2018-09-19] MEDS ORDERED: OCTREOTIDE ACETATE INJ/PF 100 MCG/1 ML SDV IV ONE (12:00)
[2018-09-19] MEDS ORDERED: PROPOFOL INJ 200 MG/20 ML VIAL IV ONE (12:08)
[2018-09-19] MEDS ORDERED: EPINEPHRINE INJ 1 MG/10 ML DISP.SYRIN ONE (12:27)
[2018-09-19 15:04] LABS: HEMATOCRIT 24.7 % (37.9-51.0); MEAN CORPUSCULAR HEMOGLOBIN 28.2 pg (27.0-33.4); MEAN CORPUSCULAR HGB CONC 34.2 g/dL (32.0-36.0); MEAN CORPUSCULAR VOLUME 83 fl (80-97); PLATELET COUNT 120 10^3/uL (150-450); RED BLOOD COUNT 2.99 10^6/uL (4.35-5.55); RED CELL DISTRIBUTION WIDTH 17.4 % (11.5-14.0); WHITE BLOOD COUNT 9.5 10^3/uL (4.0-10.5)
[2018-09-19 15:05] LABS: HEMOGLOBIN 8.4 g/dL (13.5-17.0)
--- NOTE | 2018-09-19 16:12 | PDOC PROGRESS REPORT ---
Subjective Progress Note for:: 09/19/18 Subjective:: Patient has required multiple transfusions of blood. He was already on a Protonix drip. Because of concern for continued bleeding in the setting of repeat transfusions, tachycardia, and a low normal blood pressure, octreotide was started. Hemoglobin seems to have stabilized. He is on a bit of an elevated temperature, not sure if this is due to blood product administration. Reason For Visit: UPPDER GI BLEED Physical Exam Vital Signs: Temp Pulse Resp BP Pulse Ox 100.4 F 90 13 173/78 H 100 09/19/18 15:58 09/19/18 15:58 09/19/18 15:58 09/19/18 15:58 09/19/18 15:58 Intake & Output 09/18/18 09/19/18 09/20/18 06:59 06:59 06:59 Intake Total 1548 2504 Output Total 0 1675 Balance 1548 829 Weight 78.3 kg General appearance: PRESENT: cooperative, disheveled, mild distress, other - The room is full of the horrible odor associated with an upper GI bleed passing through the intestines Respiratory exam: PRESENT: clear to auscultation fito, symmetrical, unlabored. ABSENT: accessory muscle use, chest wall tenderness, crackles, prolonged expiratory phas, rhonchi, tachypnea, wheezes Cardiovascular exam: PRESENT: tachycardia Pulses: PRESENT: normal carotid pulses Vascular exam: PRESENT: pallor GI/Abdominal exam: PRESENT: normal bowel sounds, soft. ABSENT: distended, guard ing, rebound, tenderness Extremities exam: ABSENT: clubbing, pedal edema Musculoskeletal exam: PRESENT: normal inspection. ABSENT: deformity Neurological exam: PRESENT: alert, awake, oriented to person, oriented to place, oriented to situation Psychiatric exam: PRESENT: flat affect Skin exam: PRESENT: dry, warm, other - Covered with tattoos Results Laboratory Results: 09/19/18 14:52 09/19/18 06:20 09/18/18 09/18/18 09/18/18 17:21 17:25 17:25 WBC 7.8 RBC 2.28 L Hgb 5.3 L Hct 16.7 L MCV 73 L MCH 23.2 L MCHC 31.8 L RDW 20.9 H Plt Count 320 Seg Neutrophils % 81.2 H Lymphocytes % 9.7 L Monocytes % 8.7 Eosinophils % 0.1 Basophils % 0.3 Absolute Neutrophils 6.4 Absolute Lymphocytes 0.8 Absolute Monocytes 0.7 Absolute Eosinophils 0.0 Absolute Basophils 0.0 VBG pH VBG pCO2 VBG HCO3 VBG Base Excess Sodium 137.7 Potassium 3.5 L Chloride 105 Carbon Dioxide 24 Anion Gap 9 BUN 35 H Creatinine 0.82 Est GFR ( Amer) > 60 Est GFR (Non-Af Amer) > 60 Glucose 254 H Lactic Acid 5.2 H Calcium 7.6 L Magnesium Total Bilirubin 0.1 L AST 20 ALT 17 L Alkaline Phosphatase 35 L Total Protein 4.5 L Albumin 2.5 L TSH Free T4 Free T3 pg/mL Urine Color Urine Appearance Urine pH Ur Specific [place] Urine Protein Urine Glucose (UA) Urine Ketones Urine Blood Urine Nitrite Ur Leukocyte Esterase Urine WBC (Auto) Urine RBC (Auto) Blood Type Antibody Screen 09/18/18 09/18/18 09/18/18 17:25 17:25 17:25 WBC RBC Hgb Hct MCV MCH MCHC RDW Plt Count Seg Neutrophils % Lymphocytes % Monocytes % Eosinophils % Basophils % Absolute Neutrophils Absolute Lymphocytes Absolute Monocytes Absolute Eosinophils Absolute Basophils VBG pH 7.33 VBG pCO2 45.8 VBG HCO3 23.3 VBG Base Excess -2.4 Sodium Potassium Chloride Carbon Dioxide Anion Gap BUN Creatinine Est GFR ( Amer) Est GFR (Non-Af Amer) Glucose Lactic Acid Calcium Magnesium Total Bilirubin AST ALT Alkaline Phosphatase Total Protein Albumin TSH 1.23 Free T4 0.74 L Free T3 pg/mL 3.20 Urine Color Urine Appearance Urine pH Ur Specific [place] Urine Protein Urine Glucose (UA) Urine Ketones Urine Blood Urine Nitrite Ur Leukocyte Esterase Urine WBC (Auto) Urine RBC (Auto) Blood Type A POSITIVE Antibody Screen NEGATIVE 09/19/18 09/19/18 09/19/18 00:31 05:27 06:20 WBC 7.3 RBC 2.11 L Hgb 5.5 L Hct 17.1 L MCV 81 D MCH 26.2 L MCHC 32.3 RDW 20.4 H Plt Count 188 Seg Neutrophils % Lymphocytes % Monocytes % Eosinophils % Basophils % Absolute Neutrophils Absolute Lymphocytes Absolute Monocytes Absolute Eosinophils Absolute Basophils VBG pH VBG pCO2 VBG HCO3 VBG Base Excess Sodium 137.8 Potassium 3.9 Chloride 109 H Carbon Dioxide 19 L Anion Gap 10 BUN 41 H Creatinine 1.12 Est GFR ( Amer) > 60 Est GFR (Non-Af Amer) > 60 Glucose 140 H Lactic Acid 3.0 H Calcium 6.8 L* Magnesium 1.8 Total Bilirubin AST ALT Alkaline Phosphatase Total Protein Albumin TSH Free T4 Free T3 pg/mL Urine Color Urine Appearance Urine pH Ur Specific [place] Urine Protein Urine Glucose (UA) Urine Ketones Urine Blood Urine Nitrite Ur Leukocyte Esterase Urine WBC (Auto) Urine RBC (Auto) Blood Type Antibody Screen 09/19/18 09/19/18 09/19/18 06:20 06:36 14:52 WBC 9.5 RBC 2.99 L Hgb 8.4 L D Hct 24.7 L MCV 83 MCH 28.2 MCHC 34.2 RDW 17.4 H Plt Count 120 L Seg Neutrophils % Lymphocytes % Monocytes % Eosinophils % Basophils % Absolute Neutrophils Absolute Lymphocytes Absolute Monocytes Absolute Eosinophils Absolute Basophils VBG pH VBG pCO2 VBG HCO3 VBG Base Excess Sodium Potassium Chloride Carbon Dioxide Anion Gap BUN Creatinine Est GFR ( Amer) Est GFR (Non-Af Amer) Glucose Lactic Acid 6.8 H Calcium Magnesium Total Bilirubin AST ALT Alkaline Phosphatase Total Protein Albumin TSH Free T4 Free T3 pg/mL Urine Color YELLOW Urine Appearance CLEAR Urine pH 6.0 Ur Specific [place] 1.016 Urine Protein NEGATIVE Urine Glucose (UA) 50 H Urine Ketones NEGATIVE Urine Blood NEGATIVE Urine Nitrite NEGATIVE Ur Leukocyte Esterase NEGATIVE Urine WBC (Auto) 1 Urine RBC (Auto) 0 Blood Type Antibody Screen 09/18/18 17:25 Troponin I 0.061 Impressions: Chest X-Ray 09/18/18 18:12 IMPRESSION: NO ACUTE RADIOGRAPHIC FINDING IN THE CHEST. Assessment and Plan - Diagnosis (1) Acute upper gastrointestinal hemorrhage Is this a current diagnosis for this admission?: Yes Plan: He is on a Protonix drip. Octreotide was started. He is n.p.o. now. EGD is planned. Not sure if his fever is from blood product transfusion, could possibly due to infection, but unless his temperature trends up or he shows signs of a systemic infection, will hold off on antibiotics for now. (2) Anemia due to acute blood loss Is this a current diagnosis for this admission?: Yes Plan: Transfusing to get his hemoglobin up. Serial H&H's. Repeat transfusion as needed to keep his hemoglobin greater than 8. - Time Time Spent with patient: 35 or more minutes
[2018-09-19 22:53] LABS: HEMATOCRIT 16.8 % (37.9-51.0); MEAN CORPUSCULAR HEMOGLOBIN 27.7 pg (27.0-33.4); MEAN CORPUSCULAR HGB CONC 33.8 g/dL (32.0-36.0); MEAN CORPUSCULAR VOLUME 82 fl (80-97); PLATELET COUNT 154 10^3/uL (150-450); RED BLOOD COUNT 2.06 10^6/uL (4.35-5.55); RED CELL DISTRIBUTION WIDTH 17.3 % (11.5-14.0)
[2018-09-19 22:57] LABS: HEMOGLOBIN 5.7 g/dL (13.5-17.0)
--- NOTE | 2018-09-20 01:15 | Operative Report ---
Nonrecallable Operative Report DATE OF SURGERY: 09/19/18 PREOPERATIVE DIAGNOSIS: Upper GI bleed POSTOPERATIVE DIAGNOSIS: Duodenal ulcerations, no active bleeding OPERATION: EGD with biopsy SURGEON: LEXY SWIFT ANESTHESIA: LMAC TISSUE REMOVED OR ALTERED: 1. Antrum. 2. Duodenal ulcer COMPLICATIONS: None apparent ESTIMATED BLOOD LOSS: Minimal PROCEDURE: Drains/implants: None. Procedure in detail: After informed consent was obtained, the patient was laid in the left lateral decubitus position in the ICU. After adequate LMAC anesthesia, the endoscope was passed down the oropharynx, down the esophagus, and into the stomach. There was old blood within the stomach, however there is no evidence of active bleeding. Washings and suctioning's were performed to verify this. Scope was pushed through the pylorus, into the duodenum. In the first portion of the duodenum there were circumferential ulcerations. There were no visible vessels. There were no clots. There was no active bleeding. Biopsy was taken at the margin of the ulcer. The second portion of duodenum was surveyed and was inflamed. The scope was pulled back into the antrum of the stomach, where biopsy was taken to rule out H. pylori. Retroflexion maneuver was performed in the gastric body, noting no significant hiatal hernias. The scope was then withdrawn up the esophagus. The esophagus was smooth in contour without any masses, lesions, varices, or bleeding vessels. The scope was then pulled out the oropharynx, and the procedure was concluded. All sponge, instrument, and needle counts were correct x2. Condition: Stable.
[2018-09-20] MEDS: MORPHINE SULFATE 10 MG/ML INJ IV PRN ×8 (03:41→22:28)
[2018-09-20] MEDS ORDERED: METOCLOPRAMIDE HCL INJ/PF 10 MG/2 ML SDV ONE (05:07)
[2018-09-20] MEDS: METOCLOPRAMIDE HCL INJ/PF 10 MG/2 ML SDV IV SCH ×4 (05:11→23:25)
[2018-09-20 08:31] LABS: ABSOLUTE EOSINOPHILS # (AUTO) 0.1 10^3/uL (0.0-0.6); ABSOLUTE LYMPHOCYTES (AUTO) 1.3 10^3/uL (0.5-4.7); ABSOLUTE MONOCYTES (AUTO) 1.8 10^3/uL (0.1-1.4); ABSOLUTE NEUT (AUTO) 10.7 10^3/uL (1.7-8.2); BASOPHILS % (AUTO) 0.1 % (0-2); EOSINOPHILS % (AUTO) 0.6 % (0-6); HEMATOCRIT 15.7 % (37.9-51.0); LYMPHOCYTES % (AUTO) 9.3 % (13-45); MEAN CORPUSCULAR HEMOGLOBIN 29.3 pg (27.0-33.4); MEAN CORPUSCULAR HGB CONC 34.8 g/dL (32.0-36.0); MEAN CORPUSCULAR VOLUME 84 fl (80-97); MONOCYTES % (AUTO) 13.1 % (3-13); PLATELET COUNT 117 10^3/uL (150-450); RED BLOOD COUNT 1.87 10^6/uL (4.35-5.55); RED CELL DISTRIBUTION WIDTH 16.8 % (11.5-14.0); SEGMENTED NEUTROPHILS % (AUTO) 76.9 % (42-78); TOTAL CELLS COUNTED % (AUTO) 100 %; WHITE BLOOD COUNT 13.9 10^3/uL (4.0-10.5)
[2018-09-20 08:34] LABS: HEMOGLOBIN 5.5 g/dL (13.5-17.0)
[2018-09-20] MEDS: ONDANSETRON HCL INJ/PF 4 MG/2 ML SDV IV PRN ×2 (08:37→12:46)
[2018-09-20 08:46] LABS: INTERNATIONAL RATION (INR) 1.23; PROTHROMBIN TIME 15.6 SEC (11.4-15.4)
[2018-09-20 08:47] LABS: PARTIAL THROMBOPLASTIN TIME 30.6 SEC (23.5-35.8)
[2018-09-20 08:50] LABS: BLOOD UREA NITROGEN 37 mg/dL (7-20); GLUCOSE 122 mg/dL (75-110); POTASSIUM 3.7 mmol/L (3.6-5.0)
[2018-09-20 08:55] LABS: CARBON DIOXIDE 28 mmol/L (22-30); CHLORIDE 106 mmol/L (98-107)
[2018-09-20 08:59] LABS: ANION GAP 2 (5-19)
[2018-09-20 09:01] LABS: CALCIUM 6.7 mg/dL (8.4-10.2)
--- NOTE | 2018-09-20 11:05 | RADIOLOGY REPORT (SQ) ---
EXAM DESCRIPTION: CHEST SINGLE VIEW COMPLETED DATE/TIME: 09/20/2018 10:54 am REASON FOR STUDY: TLC placement COMPARISON: 09/18/2018 NUMBER OF VIEWS: One view. TECHNIQUE: Single frontal radiographic view of the chest acquired. LIMITATIONS: None. FINDINGS: Central venous access catheter placed via left IJ approach. Catheter tip at cavoatrial j unction. No pneumothorax. Radiographic appearance of the chest otherwise stable. IMPRESSION: CENTRAL VENOUS ACCESS CATHETER IN APPROPRIATE LOCATION. NO PNEUMOTHORAX. NEW CENTRAL L INE. TECHNICAL DOCUMENTATION: JOB ID: [id number] [employer]- All Rights Reserved Reading location - IP/workstation name: [email or web address]
--- NOTE | 2018-09-20 11:45 | OPERATIVE REPORT E ---
Operative Report NAME: RADHIKA DUMONT : 1955 AGE: 63Y DATE OF SURGERY: 09/19/2018 ROOM: 611 PREOPERATIVE DIAGNOSIS: POOR VEINS FOR IV ACCESS AND NEEDED SEVERAL LINES FOR BLOOD TRANSFUSION. POSTOPERATIVE DIAGNOSIS: POOR VEINS FOR IV ACCESS AND NEEDED SEVERAL LINES FOR BLOOD TRANSFUSION. OPERATION: Placement of left internal jugular vein triple lumen catheter under ultrasound guidance. SURGEON: BAUDILIO CONTRERAS M.D. ANESTHESIA: Local. PROCEDURE: Patient was placed in Trendelenburg position with the left leg prepped and draped in the usual sterile fashion. With the use of the ultrasound, the mesenteric jugular vein was then identified. Local anesthesia infiltrated and the internal jugular vein punctured and blood return flow as dark and non pulsatile. Guidewire passed through the needle towards the area of the superior vena cava and the needle removed. The puncture site was then dilated and a triple lumen catheter inserted through the guidewire to a distance of about 18 cm. All of the 3 ports aspirated blood easily and instilled saline easily. Catheter was then anchored to the skin with 3-0 Silk. Biopatch placed over the incision site with a transparent sterile dressing placed over the Biopatch and insertion site. Patient tolerated procedure well. Chest x-ray will be obtained for placement. DICTATING PHYSICIAN: BAUDILIO CONTRERAS M.D. [id number] PHY#: [id number] ID: [id number] JOB#: [id number] ACCT: [id number] cc:BAUDILIO CONTRERAS M.D. >
[2018-09-20] MEDS ORDERED: OCTREOTIDE ACETATE INJ/PF 100 MCG/1 ML SDV ONE (12:16)
[2018-09-20] MEDS: NORMAL SALINE 500 ML with OCTREOTIDE ACETATE 500 MCG IV PRN ×2 (12:43)
[2018-09-20] MEDS ORDERED: OCTREOTIDE ACETATE INJ/PF 100 MCG/1 ML SDV IV ONE (12:45)
[2018-09-20] MEDS: NORMAL SALINE 100 ML with PANTOPRAZOLE SODIUM 80 MG IV PRN ×2 (15:08)
--- NOTE | 2018-09-20 17:16 | PDOC PROGRESS REPORT ---
Subjective Progress Note for:: 09/20/18 Subjective:: No adverse events overnight. He still having melena. He is received multiple transfusions today. He got a central line today. Vital signs have been stable. Reason For Visit: UPPDER GI BLEED Physical Exam Vital Signs: Temp Pulse Resp BP Pulse Ox 100.4 F 99 12 155/68 H 99 09/20/18 15:34 09/20/18 15:34 09/20/18 15:34 09/20/18 15:34 09/20/18 15:34 Intake & Output 09/19/18 09/20/18 09/21/18 06:59 06:59 06:59 Intake Total 1548 4024 855 Output Total 0 3895 1020 Balance 1548 129 -165 Weight 78.3 kg 85.8 kg General appearance: PRESENT: cooperative, disheveled, mild distress Respiratory exam: PRESENT: clear to auscultation fito, symmetrical, unlabored. ABSENT: accessory muscle use, chest wall tenderness, crackles, prolonged expiratory phas, rhonchi, tachypnea, wheezes Cardiovascular exam: PRESENT: tachycardia Pulses: PRESENT: normal carotid pulses Vascular exam: PRESENT: pallor GI/Abdominal exam: PRESENT: normal bowel sounds, soft. ABSENT: distended, guarding, rebound, tenderness Extremities exam: ABSENT: clubbing, pedal edema Musculoskeletal exam: PRESENT: normal inspection. ABSENT: deformity Neurological exam: PRESENT: alert, awake, oriented to person, oriented to place, oriented to situation Psychiatric exam: PRESENT: flat affect Skin exam: PRESENT: dry, warm, other - Covered with tattoos Results Laboratory Results: 09/20/18 08:21 09/20/18 08:21 09/18/18 09/19/18 09/19/18 17:25 21:54 22:38 WBC Cancelled 15.0 H RBC Cancelled 2.06 L Hgb Cancelled 5.7 L D Hct Cancelled 16.8 L MCV Cancelled 82 MCH Cancelled 27.7 MCHC Cancelled 33.8 RDW Cancelled 17.3 H Plt Count Cancelled 154 Seg Neutrophils % Lymphocytes % Monocytes % Eosinophils % Basophils % Absolute Neutrophils Absolute Lymphocytes Absolute Monocytes Absolute Eosinophils Absolute Basophils Sodium Potassium Chloride Carbon Dioxide Anion Gap BUN Creatinine Est GFR ( Amer) Est GFR (Non-Af Amer) Glucose Calcium Magnesium Albumin Blood Type A POSITIVE Antibody Screen NEGATIVE 09/20/18 09/20/18 09/20/18 08:21 08:21 09:01 WBC 13.9 H RBC 1.87 L Hgb 5.5 L Hct 15.7 L MCV 84 MCH 29.3 MCHC 34.8 RDW 16.8 H Plt Count 117 L Seg Neutrophils % 76.9 Lymphocytes % 9.3 L Monocytes % 13.1 H Eosinophils % 0.6 Basophils % 0.1 Absolute Neutrophils 10.7 H Absolute Lymphocytes 1.3 Absolute Monocytes 1.8 H Absolute Eosinophils 0.1 Absolute Basophils 0.0 Sodium 136.0 L Potassium 3.7 Chloride 106 Carbon Dioxide 28 Anion Gap 2 L BUN 37 H Creatinine 0.73 Est GFR ( Amer) > 60 Est GFR (Non-Af Amer) > 60 Glucose 122 H Calcium 6.7 L* Magnesium 1.8 Albumin 2.1 L Blood Type Antibody Screen 09/18/18 17:25 Troponin I 0.061 Impressions: Chest X-Ray 09/20/18 00:00 IMPRESSION: CENTRAL VENOUS ACCESS CATHETER IN APPROPRIATE LOCATION. NO PNEUMOTHORAX. NEW CENTRAL LINE. Assessment and Plan - Diagnosis (1) Acute upper gastrointestinal hemorrhage Is this a current diagnosis for this admission?: Yes Plan: Had a duodenal ulcer and a gastric ulcer. He is on a Protonix drip. Octreotide was started today because he started bleeding again. He continues to get serial H&H's and repeat transfusions of blood products as needed. (2) Anemia due to acute blood loss Is this a current diagnosis for this admission?: Yes Plan: Continue to monitor H&H and transfuse as needed - Time Time Spent with patient: 25-34 minutes
[2018-09-20 19:33] LABS: ABSOLUTE EOSINOPHILS # (AUTO) 0.1 10^3/uL (0.0-0.6); ABSOLUTE LYMPHOCYTES (AUTO) 1.1 10^3/uL (0.5-4.7); ABSOLUTE MONOCYTES (AUTO) 1.3 10^3/uL (0.1-1.4); ABSOLUTE NEUT (AUTO) 7.5 10^3/uL (1.7-8.2); BASOPHILS % (AUTO) 0.2 % (0-2); EOSINOPHILS % (AUTO) 1.1 % (0-6); HEMATOCRIT 19.7 % (37.9-51.0); LYMPHOCYTES % (AUTO) 10.8 % (13-45); MEAN CORPUSCULAR HEMOGLOBIN 30.1 pg (27.0-33.4); MEAN CORPUSCULAR HGB CONC 34.8 g/dL (32.0-36.0); MEAN CORPUSCULAR VOLUME 86 fl (80-97); MONOCYTES % (AUTO) 13.3 % (3-13); RED BLOOD COUNT 2.28 10^6/uL (4.35-5.55); RED CELL DISTRIBUTION WIDTH 14.8 % (11.5-14.0); SEGMENTED NEUTROPHILS % (AUTO) 74.6 % (42-78); TOTAL CELLS COUNTED % (AUTO) 100 %; WHITE BLOOD COUNT 10.1 10^3/uL (4.0-10.5)
[2018-09-20 19:43] LABS: HEMOGLOBIN 6.9 g/dL (13.5-17.0); PLATELET COUNT 75 10^3/uL (150-450)
[2018-09-20] MEDS ORDERED: FUROSEMIDE INJ/PF 40 MG/4 ML SDV ONE (22:42)
[2018-09-20] MEDS ORDERED: FUROSEMIDE INJ/PF 40 MG/4 ML SDV IV ONE (23:00)
[2018-09-20] MEDS ORDERED: PHYTONADIONE INJ 10 MG/1 ML AMPULE SUBCUT ONE (23:00)
[2018-09-21] MEDS: NORMAL SALINE 500 ML with OCTREOTIDE ACETATE 500 MCG IV PRN ×2 (00:37)
[2018-09-21] MEDS: NORMAL SALINE 100 ML with PANTOPRAZOLE SODIUM 80 MG IV PRN ×2 (00:37)
[2018-09-21] MEDS: MORPHINE SULFATE 10 MG/ML INJ IV PRN ×4 (00:49→09:17)
[2018-09-21] MEDS: LEVALBUTEROL HCL NEB 0.63 MG/3 ML AMPUL NEB PRN ×2 (00:49→09:37)
--- NOTE | 2018-09-21 04:50 | PDOC TRANSFER SUMMARY ---
General Admission Date/PCP: 09/18/18 21:00 BASSEM MORALES MD Resuscitation Status: Full Code - Transfer Diagnosis (1) Acute upper gastrointestinal hemorrhage Is this a current diagnosis for this admission?: Yes Diagnosis Summary: Patient has been given 13 units of packed red blood cells, 8 units of fresh f rozen plasma and 1 unit of platelets and continues to show evidence of ongoing bleeding with low hemoglobin levels. (2) Acute epigastric pain Is this a current diagnosis for this admission?: Yes Diagnosis Summary: Patient's pain has been well controlled most of the time with analgesic therapy. (3) Anemia due to acute blood loss Is this a current diagnosis for this admission?: Yes Diagnosis Summary: The patient's anemia has not been improved with replacement therapy due to ongoing blood loss. (4) Acquired hypothyroidism Is this a current diagnosis for this admission?: Yes Diagnosis Summary: Patient's hypothyroidism has been stable at this point. (5) Essential hypertension Is this a current diagnosis for this admission?: Yes Diagnosis Summary: Patient remains mildly hypertensive despite best efforts at control. The degree of hypertension is not alarming and may well be due to a combination of ICU stress and pain as well as anxiety due to ongoing GI bleeding. - Transfer Medications Home Medications: Buspirone HCl [Buspar 10 mg Tablet] 10 mg PO Q8 09/18/18 Clonidine HCl [Catapres 0.1 mg Tablet] 0.1 mg PO Q12 09/18/18 Doxepin HCl [Sinequan 10 mg Capsule] 10 mg PO QHS 09/18/18 Gabapentin [Neurontin] 600 mg PO Q8 09/18/18 Hydroxyzine Pamoate [Vistaril 25 mg Capsule] 25 mg PO Q8HP PRN 09/18/18 Levothyroxine Sodium [Levo-T] 150 mcg PO Q2D 09/18/18 Levothyroxine Sodium [Synthroid] 137 mcg PO Q2D 09/18/18 Losartan/Hydrochlorothiazide [Hyzaar 50-12.5 Tablet] 1 tab PO Q12 09/18/18 Magnesium Oxide [Mag-Ox 400 mg Tablet] 400 mg PO QHS 09/18/18 Oxycodone HCl 15 mg PO Q6HP PRN 09/18/18 Sucralfate [Carafate 1 gm Tablet] 1 gm PO MEALSHS 09/18/18 Venlafaxine HCl [Venlafaxine HCl ER] 150 mg PO Q12 09/18/18 Transfer Medications: Current Medications Acetaminophen (Tylenol 650 Mg Supp) 650 mg OH Q4HP PRN PRN Reason: For headache, pain or fever Stop: 10/18/18 20:45 Chlorpromazine HCl (Thorazine Inj 25 Mg/1 Ml Ampule) 25 mg IV Q8HP PRN PRN Reason: ANXIETY/AGITATION Stop: 10/19/18 01:46 Last Admin: 09/19/18 01:59 Dose: 25 mg Documented by: Dextrose (Dextrose Inj 50% Syringe (25 Gm/50 Ml)) 12.5 gm IV PRN PRN; Protocol PRN Reason: FOR BG 50-69 IN ALERT PATIENT Stop: 10/19/18 06:05 Dextrose (Dextrose Inj 50% Syringe (25 Gm/50 Ml)) 25 gm IV PRN PRN; Protocol PRN Reason: See Label Comments Stop: 10/19/18 06:05 Diphenhydramine HCl (Benadryl Inj 50 Mg/1 Ml Vial) 25 mg IV Q4HP PRN PRN Reason: ITCHING Stop: 10/18/18 20:47 Glucagon (Glucagen Inj 1 Mg Vial) 1 mg SUBCUT PRN PRN; Protocol PRN Reason: Evaluate for BG < 70 Stop: 10/19/18 06:05 Glucose (Glutose 40% Gel 15 Gm Tube) 15 gm PO PRN PRN; Protocol PRN Reason: For BG 50-69 in Alert Patient Stop: 10/19/18 06:05 Glucose (Glutose 40% Gel 15 Gm Tube) 30 gm PO PRN PRN; Protocol PRN Reason: FOR BG < 50 IN ALERT PATIENT Stop: 10/19/18 06:05 Hydralazine HCl (Apresoline Inj/Pf 20 Mg/1 Ml Sdv) 20 mg IV Q4HP PRN PRN Reason: Give For Sbp > 160 / Dbp > 100 Stop: 10/18/18 20:45 Sodium Chloride (Nacl 0.9% 1000 Ml Iv Soln) 1,000 mls @ 167 mls/hr IV CONTINUOUS PRN PRN Reason: THIS MED IS NOT "PRN" Stop: 10/18/18 20:35 Last Admin: 09/19/18 13:00 Dose: 167 mls/hr Documented by: Lactated Ringer's (Lactated Ringers 1000 Ml Iv Soln) 1,000 mls @ 0 mls/hr IV CONTINUOUS PRN PRN Reason: THIS MED IS NOT "PRN" Stop: 10/19/18 04:36 Pantoprazole Sodium 80 mg/ (Sodium Chloride) 100 mls @ 10 mls/hr IV CONTINUOUS PRN PRN Reason: THIS MED IS NOT "PRN" Stop: 09/22/18 09:33 Last Admin: 09/21/18 00:37 Dose: 10 mls/hr Documented by: Octreotide Acetate 500 mcg/ (Sodium Chloride) 500 mls @ 50 mls/hr IV CONTINUOUS PRN PRN Reason: THIS MED IS NOT "PRN" Stop: 10/19/18 11:13 Last Admin: 09/21/18 00:37 Dose: 50 mcg/hr, 50 mls/hr Documented by: Levalbuterol HCl (Xopenex Neb 0.63 Mg/3 Ml Ampul) 0.63 mg NEB RTQ2HP PRN PRN Reason: SHORTNESS OF BREATH Stop: 10/18/18 20:45 Last Admin: 09/21/18 00:49 Dose: 0.63 mg Documented by: Metoclopramide HCl (Reglan Inj/Pf 10 Mg/2 Ml Sdv) 10 mg IV Q6 MEGHA Stop: 10/19/18 05:59 Last Admin: 09/20/18 23:25 Dose: Not Given Documented by: Metoprolol Tartrate (Lopressor Inj/Pf 5 Mg/5 Ml Sdv) 5 mg IV Q4HP PRN PRN Reason: Give For Sbp > 160 / Dbp > 100 Stop: 10/18/18 20:45 Last Admin: 09/20/18 18:24 Dose: 5 mg Documented by: Morphine Sulfate (Morphine 10 Mg/Ml Inj) 10 mg IV Q2HP PRN PRN Reason: PAIN SCALE OF 5 Stop: 09/25/18 21:41 Last Admin: 09/21/18 03:51 Dose: 10 mg Documented by: Morphine Sulfate (Morphine 10 Mg/Ml Inj) 5 mg IV Q2HP PRN PRN Reason: FOR PAIN SCALE 1-2 Stop: 09/25/18 21:40 Last Admin: 09/20/18 12:44 Dose: 5 mg Documented by: Morphine Sulfate (Morphine 10 Mg/Ml Inj) 7.5 mg IV Q2HP PRN PRN Reason: FOR PAIN SCALE 3-4 Stop: 09/25/18 21:41 Last Admin: 09/20/18 17:47 Dose: 7.5 mg Documented by: Ondansetron HCl (Zofran Inj/Pf 4 Mg/2 Ml Sdv) 4 mg IV Q4HP PRN PRN Reason: FOR NAUSEA/VOMITING Stop: 10/18/18 20:35 Last Admin: 09/20/18 12:46 Dose: 4 mg Documented by: Sodium Chloride (Saline Flush 2.5 Ml Monoject Prefil Syrin) 2.5 ml IV Q8 MEGHA Stop: 10/18/18 21:59 Last Admin: 09/20/18 22:25 Dose: Not Given Documented by: - Allergies Allergies/Adverse Reactions: No Known Allergies Allergy (Verified 10/26/15 19:30) Hospital Course Hospital Course: RADHIKA DUMONT is a 63 year old male who presented to the emergency room with acute abdominal pain. He admits waking this morning with the acute onset of severe, constant, achy (with intermittent sharp pains) epigastric pain without radiation. Patient's abdominal pain was accompanied by a feeling of generalized fatigue and weakness and was associated with passing a large dark black tarry stool and a syncopal episode. He denies other associated or accompanying signs and symptoms. He admits recent problems with insomnia for which she has been taking Motrin PM. He further admits a history of peptic ulcer disease with hemorrhage and relates that his current episode is very similar to his previous episode. He has not identified any other aggravating or ameliorating factors for his abdominal pain. In the emergency room he was found to be hemodynamically stable but had a hemoglobin of 5.3 and a BUN of 35. Patient was subsequently admitted to the hospital for further evaluation and treatment. Patient was transfused with packed red blood cells for a total of 13 units and fresh frozen plasma for a total of 8 units as well as 1 unit of platelets. Patient continued to have evidence of persistent GI bleeding. Patient did have endoscopies performed x2 by the surgical service with identification of a gastric ulcer and a duodenal ulcer neither of which were bleeding at the time of the first endoscopy. Patient has not had a colonoscopy or a bleeding scan at this point. Patient asked if he might not need to go to [place] where he was sent the last time when he had a GI bleed. He was asking if he could be sent to see Dr. Tiera Morgan. Upon reassessing the patient's status it was felt that it was more appropriate to transfer the patient to a tertiary facility where he could be evaluated by gastroenterology and have more interventional therapy performed if required. To this end I discussed patient case with Dr. Stern and he agreed that he would accept the patient at [facility] in [place]. Patient was subsequently informed of the availability of transfer and consented. Physical Exam Vital Signs: Temp Pulse Resp BP Pulse Ox 100.6 F H 90 10 L 155/89 H 95 09/21/18 04:00 09/21/18 00:49 09/21/18 04:30 09/21/18 04:27 09/21/18 04:30 Intake & Output 09/19/18 09/20/18 09/21/18 23:59 23:59 23:59 Intake Total 3991 3059 559 Output Total 2695 3000 3750 Balance 1296 59 -3191 Weight 78.3 kg 85.8 kg 84.9 kg General appearance: PRESENT: cooperative, mild distress - Secondary to abdominal pain and anxiety Head exam: PRESENT: atraumatic, normocephalic Eye exam: PRESENT: conjunctiva pale. ABSENT: scleral icterus Ear exam: PRESENT: normal external ear exam. ABSENT: bleeding, drainage Mouth exam: PRESENT: dry mucosa, neck supple Neck exam: ABSENT: thyromegaly, tracheal deviation Respiratory exam: PRESENT: chest wall tenderness, clear to auscultation fito, symmetrical, unlabored Cardiovascular exam: PRESENT: RRR. ABSENT: clicks, gallop, rubs Pulses: PRESENT: normal radial pulses, normal dorsalis pedis pul Vascular exam: PRESENT: normal capillary refill, pallor - Moderate pallor noted GI/Abdominal exam: PRESENT: hypoactive bowel sounds, soft, tenderness - Moderate tenderness in the epigastric abdomen and the periumbilical/suprapubic abdomen Rectal exam: PRESENT: deferred Extremities exam: ABSENT: joint swelling, pedal edema Musculoskeletal exam: PRESENT: full ROM, normal inspection Neurological exam: PRESENT: alert, oriented to person, oriented to place, oriented to time, oriented to situation, CN II-XII grossly intact. ABSENT: motor sensory deficit Psychiatric exam: PRESENT: appropriate affect, normal mood Skin exam: PRESENT: dry, intact, pallor - Moderate pallor, warm. ABSENT: jaundice, rash, urticaria Results Laboratory Results: 09/20/18 19:00 09/20/18 08:21 09/18/18 09/20/18 09/20/18 17:25 08:21 08:21 WBC 13.9 H RBC 1.87 L Hgb 5.5 L Hct 15.7 L MCV 84 MCH 29.3 MCHC 34.8 RDW 16.8 H Plt Count 117 L Seg Neutrophils % 76.9 Lymphocytes % 9.3 L Monocytes % 13.1 H Eosinophils % 0.6 Basophils % 0.1 Absolute Neutrophils 10.7 H Absolute Lymphocytes 1.3 Absolute Monocytes 1.8 H Absolute Eosinophils 0.1 Absolute Basophils 0.0 Sodium 136.0 L Potassium 3.7 Chloride 106 Carbon Dioxide 28 Anion Gap 2 L BUN 37 H Creatinine 0.73 Est GFR ( Amer) > 60 Est GFR (Non-Af Amer) > 60 Glucose 122 H Calcium 6.7 L* Magnesium 1.8 Albumin Blood Type A POSITIVE Antibody Screen NEGATIVE 09/20/18 09/20/18 09:01 19:00 WBC 10.1 RBC 2.28 L Hgb 6.9 L Hct 19.7 L MCV 86 MCH 30.1 MCHC 34.8 RDW 14.8 H Plt Count 75 L Seg Neutrophils % 74.6 Lymphocytes % 10.8 L Monocytes % 13.3 H Eosinophils % 1.1 Basophils % 0.2 Absolute Neutrophils 7.5 Absolute Lymphocytes 1.1 Absolute Monocytes 1.3 Absolute Eosinophils 0.1 Absolute Basophils 0.0 Sodium Potassium Chloride Carbon Dioxide Anion Gap BUN Creatinine Est GFR ( Amer) Est GFR (Non-Af Amer) Glucose Calcium Magnesium Albumin 2.1 L Blood Type Antibody Screen 09/18/18 17:25 Troponin I 0.061 Impressions: Chest X-Ray 09/20/18 00:00 IMPRESSION: CENTRAL VENOUS ACCESS CATHETER IN APPROPRIATE LOCATION. NO PNEUMOTHORAX. NEW CENTRAL LINE.
[2018-09-21] MEDS: METOCLOPRAMIDE HCL INJ/PF 10 MG/2 ML SDV IV SCH (05:28)
[2018-09-21 08:01] LABS: INTERNATIONAL RATION (INR) 1.07
[2018-09-21 08:03] LABS: ABSOLUTE EOSINOPHILS # (AUTO) 0.2 10^3/uL (0.0-0.6); ABSOLUTE LYMPHOCYTES (AUTO) 0.8 10^3/uL (0.5-4.7); ABSOLUTE MONOCYTES (AUTO) 1.5 10^3/uL (0.1-1.4); ABSOLUTE NEUT (AUTO) 8.9 10^3/uL (1.7-8.2); BASOPHILS % (AUTO) 0.2 % (0-2); EOSINOPHILS % (AUTO) 1.9 % (0-6); HEMATOCRIT 23.8 % (37.9-51.0); HEMOGLOBIN 8.3 g/dL (13.5-17.0); LYMPHOCYTES % (AUTO) 7.2 % (13-45); MEAN CORPUSCULAR HEMOGLOBIN 30.2 pg (27.0-33.4); MEAN CORPUSCULAR VOLUME 86 fl (80-97); PLATELET COUNT 105 10^3/uL (150-450); RED BLOOD COUNT 2.76 10^6/uL (4.35-5.55); RED CELL DISTRIBUTION WIDTH 14.2 % (11.5-14.0); SEGMENTED NEUTROPHILS % (AUTO) 77.7 % (42-78); TOTAL CELLS COUNTED % (AUTO) 100 %; WHITE BLOOD COUNT 11.5 10^3/uL (4.0-10.5)
[2018-09-21 08:17] LABS: ANION GAP 6 (5-19); BLOOD UREA NITROGEN 21 mg/dL (7-20); CARBON DIOXIDE 28 mmol/L (22-30); CHLORIDE 100 mmol/L (98-107); GLUCOSE 139 mg/dL (75-110); POTASSIUM 3.5 mmol/L (3.6-5.0)
[2018-09-21 08:42] LABS: CALCIUM 6.9 mg/dL (8.4-10.2)
[2018-09-21 08:56] VITALS: BP 152/88
== END 2018-09-21 10:00 | disposition short-term general hospital (02) | DRG 378 ==
LOC: ER 17:05 → EH 21:00 → 3S 23:51 → ICU 09-19 03:57
PROVIDERS: ADMIT Emergency Medicine; ATTEND Emergency Medicine
PROC: 30233N1 Transfusion of Nonautologous Red Blood Cells into Peripheral Vein, Percutaneous Approach (ICD-10-PCS; principal; 2018-09-18)
PROC: 30233L1 Transfusion of Nonautologous Fresh Plasma into Peripheral Vein, Percutaneous Approach (ICD-10-PCS; 2018-09-19)
PROC: 0DB98ZX Excision of Duodenum, Via Natural or Artificial Opening Endoscopic, Diagnostic (ICD-10-PCS; 2018-09-19)
PROC: 0DB78ZX Excision of Stomach, Pylorus, Via Natural or Artificial Opening Endoscopic, Diagnostic (ICD-10-PCS; 2018-09-19)
PROC: 02HV33Z Insertion of Infusion Device into Superior Vena Cava, Percutaneous Approach (ICD-10-PCS; 2018-09-20)
PROC: B548ZZA Ultrasonography of Superior Vena Cava, Guidance (ICD-10-PCS; 2018-09-20)
DX: K92.1 Melena (principal); D62 Acute posthemorrhagic anemia; I10 Essential (primary) hypertension; G47.00 Insomnia, unspecified; E89.0 Postprocedural hypothyroidism; I87.2 Venous insufficiency (chronic) (peripheral); K26.9 Duodenal ulcer, unspecified as acute or chronic, without hemorrhage or perforation; K29.80 Duodenitis without bleeding; Y83.6 Removal of other organ (partial) (total) as the cause of abnormal reaction of the patient, or of later complication, without mention of misadventure at the time of the procedure; K29.50 Unspecified chronic gastritis without bleeding; Z87.891 Personal history of nicotine dependence; Z87.11 Personal history of peptic ulcer disease; Z79.899 Other long term (current) drug therapy; Z85.850 Personal history of malignant neoplasm of thyroid; Z96.649 Presence of unspecified artificial hip joint; Z96.659 Presence of unspecified artificial knee joint; Z82.49 Family history of ischemic heart disease and other diseases of the circulatory system; Z80.9 Family history of malignant neoplasm, unspecified
CPT/HCPCS: 36415; 36430; 43239; 71045; 731; 80048; 80053; 81001; 82040; 82803; 82962; 83605; 83735; 84439; 84443; 84481; 84484; 85025; 85610; 85730; 86850; 86900; 86901; 86920; 87040; 87086; 88305; 88342; 93005; 93010; 94640; 96361; 96365; 96375; 96376; 99291; C1751; J1170; J1940; J2270; J2354; J2405; J2704; J2765; J3010; J3230; J3430; J3490; J7030; J7040; J7050; J7614; P9016; P9017; P9035; S0164

== ENCOUNTER → 2019-04-07 | Outpatient (CLI) | payer MEDICARE ==
--- NOTE | 2019-04-09 09:00 | RADIOLOGY REPORT (SQ) ---
EXAM DESCRIPTION: MRI LT UPPER JOINT WITHOUT COMPLETED DATE/TIME: 04/07/2019 5:25 pm REASON FOR STUDY: M25.512 PAIN IN LEFT SHOULDER M25.512 PAIN IN LEFT SHOULDER COMPARISON: None. TECHNIQUE: Left shoulder images acquired and stored on PACS. Multiplanar imaging to include fat sens itive sequences such as T1, water sensitive sequences such as FST2/STIR, cartilage sensitive sequence s such as FSPD/gradient-echo sequences. LIMITATIONS: This study is significantly limited by motion artifact on many of the sequences. FINDINGS: BONE MARROW AND CORTEX: Bone irregularity and edema along the anterolateral humeral head a mayank and involving the greater tuberosity. This may represent slightly impacted fracture, difficult to further define. Correlate with radiographs and/or CT. Marrow signal otherwise looks generally no rmal. JOINT OR BURSAL EFFUSION: No significant joint or bursal fluid. No suggestion of loose bodies. GLENO-HUMERAL ARTICULATION: Normal articulation. No subluxation. No cystic change. No osteophytes or cartilage loss. ACROMION AND AC JOINT: Edema and bone overgrowth, moderate arthropathy. Slight subacromial narrowi ng. ROTATOR CUFF AND INTERVAL: Irregular cuff tear with a full-thickness component along the anterior sup raspinatus insertion. Articular surface delamination and tendinosis otherwise in the supraspinatus. Subscapularis is grossly intact. Mild fatty atrophy and volume loss supraspinatus and infraspinatus . LABRUM AND BICEPS LABRAL COMPLEX: No overt labral tear or biceps pathology. REMAINDER OF LABRUM AND IGHL : Limited assessment due to motion. Grossly intact. PERIARTICULAR AND ADJACENT SOFT TISSUES: No masses or abnormal nodes. OTHER: No other significant finding. IMPRESSION: 1. Significantly limited by motion. 2. Irregularity in the anterolateral humeral head suspicious for fracture. 3. Cuff disease with full-thickness tear involving the supraspinatus. There is cuff atrophy. TECHNICAL DOCUMENTATION: JOB ID: [id number] 2011 [employer]- All Rights Reserved Reading location - IP/workstation name: [email or web address]
== END ==
LOC: RAD 15:01
PROVIDERS: ATTEND Nurse Practitioner Family
DX: M75.122 Complete rotator cuff tear or rupture of left shoulder, not specified as traumatic (principal); M25.512 Pain in left shoulder

== ENCOUNTER 2019-12-27 07:03 | Day surgery (SDC) | payer MEDICARE ==
[~2019-12-27 07:03] MED LIST: KETOROLAC TROMETHAMINE 0.45% 4 DROP/0.4 ML DROPERETTE OD PRN; LIDOCAINE 3.5% OPH GEL/PF 1 ML/TUBE OD PRN; TETRACAINE HCL 0.5% OPH SOLN 4 ML OD PRN
[2019-12-27] MEDS ORDERED: MIDAZOLAM 2 MG/2 ML INJ ONE (07:08)
[2019-12-27] MEDS: TROPICAMIDE 1% OPH SOLN 15 ML OD PRN ×3 (07:52→08:01)
[2019-12-27] MEDS: TETRACAINE HCL 0.5% OPH SOLN 4 ML OD PRN ×3 (07:52→08:24)
[2019-12-27] MEDS: CYCLOPENTOLATE 0.2%/PHENYLEPHRINE 1% OPH SOLN 2 ML OD PRN ×3 (07:52→08:01)
[2019-12-27] MEDS: BESIFLOXACIN HCL 0.6% OPH SUSP 5 ML BOTTLE OD PRN ×4 (07:53→08:56)
[2019-12-27] MEDS: EPINEPHRINE INJ/PF 1 MG/1 ML AMPULE ONE ×2 (08:41)
[2019-12-27] MEDS: LIDOCAINE 1%/PHENYLEPHRINE 1.5% 1 ML VIAL ONE ×2 (08:41)
[2019-12-27] MEDS: CHONDR SU A NA/HYALUR INTRAOC KIT (SURGICARE) ONE ×2 (08:41)
[2019-12-27] MEDS: DORZOLAMIDE HCL 2%/TIMOLOL MALEAT 0.5% OPH SOLN 10 ML OD PRN ×2 (08:56)
--- NOTE | 2019-12-27 20:18 | Operative Report ---
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 Gonzalez is a 64 year old male ] Who presents to our clinic complaining of difficulty seeing, to read and drive due to blurry vision in both eyes. On examination, she was found to have best corrected visual acuity of [20/40] in the right eye. Ophthalmoscopy revealed a [+2] nuclear, [+3] corneal degeneration, [+1] posterior subcapsular cataract in the right eye with normal appearing cornea, vitreous, retina and optic nerve. I discussed the findings of the exam with the patient. We discussed the risks, benefits and alternatives of cataract extraction and intraocular lens implant in the right eye as a means of improving her vision. Risks that were discussed with the patient include infection, bleeding, retinal detachment and possible need for additional surgery. The patient understands that she may need to wear glasses after surgery. After discussion, the patient indicated her interest in having this procedure performed by signing an informed witness consent form. REPORT OF PROCEDURE: On the day of surgery, the patient was given a topical application to the right eye to consist of drop of Tetracaine 0.5%, tropicamide 1%, Cyclomidril, Besivance 0.6% and Acular 0.45%. The patient was then taken to the operating room in a supine position in a standard eye bed. Intravenous sedation was administered and she was prepped and draped in the standard fashion. A timeout was performed to confirm the surgical site. Attention was directed to the right eye where a paracentesis was created at the 11:30 position at the corneal limbus with a 15 degree blade. The anterior chamber was filled with 0.3 mL of 1% methylparaben free lidocaine and after 30 seconds the anterior chamber was filled with viscoelastic material. A 3 plane corneal incision was then made at the 9 o'clock position at the cornea limbus with a keratome. A continuous curvilinear capsulorrhexis was then made in the anterior capsule of the lens with a cystotome. The lens was hydrodissected using balanced saline solution. The lens nucleus was then removed by phacoemulsification using the stop and chop technique. CDE [11.53]. The remaining cortical material was then removed from the posterior capsular bag using irrigation and aspiration. The posterior capsule bag was filled with viscoelastic material and a lens implant was inserted into the posterior capsule bag. I have chosen for this case is a one piece acrylic lens from [employer] model [[id number]], serial number [[id number]], lens power [20.5]. The lens was removed from its package, inspected and found to be free of defects it was loaded into a CerRx D insert er. The pattern developer was passed through the temporal wound and the lens was advanced into the posterior capsular bag. The lens implant was centered in the posterior capsular bag with the Tere spatula the viscoelastic material was removed from the eye using irrigation and aspiration. The wounds were closed by stromal hydration and they were tested with the Weck-Mary sponges and found to have no leaks. Intraocular pressure was assessed by manual palpitation found to be with in the physiologic range. The drape and speculum were removed. Drops of Durezol, Combigan and gatifloxacin were instilled in the right eye. The patient was then taken to the recovery room in good condition. The patient tolerated the procedure very well. The patient was given a prescription for gatifloxacin, Durezol and Ilervo to use every 2 hours while awake today. She will return my clinic tomorrow for follow-up evaluation.
== END 2019-12-27 09:39 | disposition home or self-care (01) ==
LOC: SC 07:03
PROVIDERS: ATTEND Ophthalmology
DX: H25.811 Combined forms of age-related cataract, right eye (principal); M19.90 Unspecified osteoarthritis, unspecified site; F32.9 Major depressive disorder, single episode, unspecified; I10 Essential (primary) hypertension; E03.9 Hypothyroidism, unspecified
CPT/HCPCS: 66984; V2632; J2250; J3490 ×2; A9270; J0171